=== PATIENT | female | born 1990 | race Caucasian/White ===

== ENCOUNTER 2016-07-13 16:59 | Emergency (ER) | payer OTHER ==
[~2016-07-13] VITALS: Ht 162.6 cm; Wt 88.5 kg
[2016-07-13 17:00] VITALS: TEMP 36.6; Ht 162.6 cm; Wt 88.5 kg
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
[2016-07-13] MEDS ORDERED: PRENTAB26 PO (17:24)
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
--- NOTE | 2016-07-13 18:03 | DIAGNOSTIC IMAGING REPORT ---
RIGHT FOOT MIN 3 VIEWS ROUTINE CLINICAL HISTORY: right foot pain Right pain COMPARISON: None. DISCUSSION: The bones and joint spaces appear intact. There is no evidence of fracture, dislocation or bony disease. Suggestion of subluxation of the fifth metatarsophalangeal joint on the AP projection. This is not supported on the additional images and appears to be secondary to patient positioning and/or overlap artifact. IMPRESSION: Heel spur. Mild soft tissue edema. No acute bony abnormality. If the patient specifically complains of pain at the fifth metatarsophalangeal joint, specific images of that region should be acquired Electronically signed by: Lucian Garcia M.D. 07/13/2016 6:02 PM Dictated Date/Time: 07/13/2016 6:00 PM
--- NOTE | 2016-07-13 18:56 | DIAGNOSTIC IMAGING REPORT ---
RIGHT TOE(S) MIN 2 VIEWS CLINICAL HISTORY: right fifth toe pain Right pain COMPARISON: Right foot series same date DISCUSSION: Anatomic alignment. No evidence for fracture or dislocation. Mild soft tissue edema. IMPRESSION: 1. No acute bony abnormality. 2. Mild soft tissue edema. 3. Findings on the prior series appear to relate to patient positioning Electronically signed by: Lucian Garcia M.D. 07/13/2016 6:54 PM Dictated Date/Time: 07/13/2016 6:53 PM
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
[2016-07-13 20:06] VITALS: BP 108/62; PULSE 88; O2SAT 99
== END 2016-07-13 20:07 | disposition home or self-care (01) ==
LOC: EDBD 16:59 → C.EDA 17:00
DX: O9A.212 Injury, poisoning and certain other consequences of external causes complicating pregnancy, second trimester (principal); Z3A.26 26 weeks gestation of pregnancy; S93.601A Unspecified sprain of right foot, initial encounter; V43.52XA Car driver injured in collision with other type car in traffic accident, initial encounter

== ENCOUNTER 2025-01-08 20:14 | Observation (INO) ==
[2025-01-08 20:26] VITALS: TEMP 98.2
[2025-01-08 21:03] LABS: Hematocrit (blood only) 39.9 % (37.0-47.0); Hemoglobin 13.3 g/dl (12.0-16.0); Immature Granulocytes # (auto) 0.01 K/uL (0.01-0.20); Immature Granulocytes % (auto) 0.2 %; Mean Corpuscular Hemoglobin 30.6 pg (25.0-34.0); Mean Corpuscular Volume 91.9 fL (80.0-100.0); Platelet Count 211 K/uL (130-400); RDW Standard Deviation 41.8 fL (36.4-46.3); Red Blood Count 4.34 M/uL (4.20-5.40); White Blood Count 6.66 K/ul (4.8-10.8)
[2025-01-08 21:21] LABS: Alanine Aminotransferase 16.0 U/L (7-52); Albumin Globulin Ratio 1.4 (0.9-2); Alkaline Phosphatase 49.0 U/L (34-104); Anion Gap 5.0 (3-11); Bilirubin,Total 0.5 mg/dl (0.2-1.0); Blood Urea Nitrogen 5.0 mg/dl (6-23); Calcium 8.8 mg/dl (8.6-10.3); Carbon Dioxide 30.0 mmol/L (21-32); Chloride 109.0 mmol/L (98-107); Creatinine Clr Calc Pharmacy 70.0 ml/min; Globulin 2.9 gm/dl (2.5-4.0); Glucose 87.0 mg/dl (70-99(Fasting)); Potassium 3.6 mmol/L (3.5-5.1); Sodium 144.0 mmol/L (136-145); Total Protein 6.9 gm/dl (6.0-8.3)
[2025-01-08 21:35] LABS: INR 1.0 (0.9-1.1); Partial Thromboplastin Time 25 Seconds (21-31); Prothrombin Time 11.0 Seconds (9.0-12.0)
[2025-01-08 22:06] LABS: Magnesium 2.2 mg/dl (1.7-2.4)
[2025-01-08 22:07] LABS: Pregnancy Test, Serum Negative (Negative)
[2025-01-08 22:22] LABS: Thyroid Stimulating Hormone 3.342 uIu/ml (0.300-4.500)
[2025-01-08] MEDS: OPTIRAY 320 125ml IV ONE (22:33)
--- NOTE | 2025-01-08 22:36 | XRay Report ---
Exam(s): XR CXR 1 VIEW EXAM: XR Chest, 1 View CLINICAL HISTORY: Chest pain, nonspecific. TECHNIQUE: Frontal view of the chest. COMPARISON: Chest single view 06/06/2020 FINDINGS: Lungs: Unremarkable. No consolidation. The pulmonary vasculature demonstrates no significant radiographic abnormality. Pleural space: Unremarkable. No pneumothorax. No large pleural effusion. Heart: Stable postsurgical changes consistent with cardiac valve replacement. No cardiomegaly. Mediastinum: No significant abnormality identified. The trachea is midline. Bones/joints: Intact sternal hardware. No acute osseous abnormality. IMPRESSION: No acute cardiopulmonary process or significant alteration from the prior examination. Stable postsurgical changes. Electronically signed by: Dion Ceballos MD 01/08/25 22:35 PM
[2025-01-08] MEDS: ALBUT/IPRATROP 3MG/0.5MG NEB 3 ML VIAL NEB STA (22:41)
--- NOTE | 2025-01-08 23:20 | CT Scan Report ---
Exam(s): CTA CHEST IV Amt: 120 ml EXAM: CT Angiography Chest With Intravenous Contrast CLINICAL HISTORY: PE. TECHNIQUE: Axial computed tomographic angiography images of the chest with intravenous contrast. CTDI is 18.32 mGy and DLP is 600.8 mGy-cm. Automated exposure control was utilized for the study. A dose lowering technique was utilized adhering to the principles of ALARA. MIP reconstructed images were created and reviewed. COMPARISON: No relevant prior studies available. FINDINGS: Pulmonary arteries: Accounting for limitations with respiratory artifact, there is no definite evidence for pulmonary embolism. Aorta: No acute findings. No thoracic aortic aneurysm. Lungs: Central peribronchial cuffing with more prominent changes in the lower lobes. Interlobular septal thickening noted in both lower lobes. No mass. No consolidation. Pleural space: Small right pleural effusion noted posteriorly measuring a approximately 12 mm. No loculation. No pneumothorax. Heart: Evidence of mitral valve replacement. The cardiac chambers are borderline prominent. No pericardial effusion. Bones/joints: No acute fracture. No dislocation. Soft tissues: Unremarkable. Lymph nodes: Unremarkable. No enlarged lymph nodes. IMPRESSION: 1. Accounting for limitations with respiratory artifact, there is no definite evidence for pulmonary embolism. 2. Central peribronchial cuffing with more prominent changes in the lower lobes. Interlobular septal thickening noted in both lower lobes. Favor dependent vascular congestion over interstitial infection. 3. Small right pleural effusion noted posteriorly measuring a approximately 12 mm. No loculation. Electronically signed by: Dion Ceballos MD 01/08/25 23:19 PM
--- NOTE | 2025-01-08 23:45 | XRay Report ---
Exam(s): XR LEFT ANKLE, 3+ views EXAM: XR Left Ankle Complete, 3 or More Views CLINICAL HISTORY: pain. TECHNIQUE: Frontal, lateral and oblique views of the left ankle. COMPARISON: No relevant prior studies available. FINDINGS: Bones/joints: No acute osseous abnormality. Remote healed fracture involving the distal fibula. Large plantar calcaneal spur. No dislocation. Soft tissues: Soft tissue fullness noted about the ankle. No radiopaque foreign body or subcutaneous emphysema. IMPRESSION: Soft tissue fullness noted about the ankle. No acute osseous abnormality involving the left ankle. Electronically signed by: Dion Ceballos MD 01/08/25 23:44 PM
--- NOTE | 2025-01-08 23:55 | Emergency Department Note ---
History of Present Illness General Chief complaint: Shortness of Breath/Dyspnea Stated complaint: WHEEZING, PAIN UNDER RIBS, ANKLE SWELLING Time Seen by Provider: 01/08/25 21:24 History of Present Illness Maximum Pain Intensity: 6 This 34 year old female presents to the ER c/o increasing shortness of breath with wheezing and increasing leg pain and swelling for the past 2 months steadily getting worse. Patient has not seen her net web developer in quite some time. At age 1 and 8 she had heart surgery for hole in her heart and for mitral valve prolapse. Patient denies chest pain, fever, chills, abdominal pain. She also injured her left ankle last year. No history of blood clots. No history of heart failure. No asthma. Home Medications Medication Instructions Recorded Confirmed Type vits no.133-ferrous 1 tab PO DAILY 04/21/20 06/06/20 History fumarate 28 mg-folic acid 800 mcg tablet () Allergies Allergy/AdvReac Type Severity Reaction Status Date / Time No Known Allergies Allergy Verified 06/06/20 06:36 Past Med/Surg History Problem List (Updated 01/09/25 @ 00:42 by Alecia Cobb PA-C) Edema (Acute) Acute dyspnea (Acute) Maternal congenital cardiac anomaly affecting , antepartum, third trimester Premature rupture of membranes Decreased movement Encounter for pre-operative examination Medical History Anxiety Asymptomatic PVCs Atrioventricular septal defect (AVSD) Back pain Cardiac murmur Chronic back pain Congenital mitral insufficiency Depression Irregular heart beat Leaky heart valve FOLLOWED WITH DR. RUIZ --> UPCOMING NEW PT APPT WITH DR. REYNAGA 12/18. Migraine Mitral stenosis Surgical History H/O mitral valve repair History of cardiac cath APPROX 20 YEARS AGO - [place] History of open heart surgery A CHILD X 2 (AGE 1 AND AGE 8) -- "ONE TO PATCH A HOLE IN MY HEART AND ONE TO REPAIR A VALVE" Family History Mother Family history of reaction to anesthesia PONV Social History Smoking Status: Never smoker Second Hand Exposure: No; Do You Dip or Chew Tobacco: No; Hx Alcohol Use: No Hx Substance Use: No Preferred Language: Khmer Communication Ability: Effective Dental Claims Processor Required: No Beliefs That Will Affect Care: None marital status: Current Living Situation: Spouse Feels Safe at Home: Yes Assistive Devices: Contacts Review of Systems A total of 10 systems reviewed and were otherwise negative Physical Exam Vital Signs Vital Signs - 24 hr 01/08/25 20:20 01/08/25 22:42 01/08/25 22:55 Temperature 36.8 C Temperature Source Oral Pulse Rate 70 60 Pulse Rate [Apical] 57 L Pulse Rhythm [Apical] Regular Pulse Strength [Apical] Normal Respiratory Rate 18 18 Respiratory Effort / Characteristics Non-Labored Spontaneous Non-Labored Spontaneous Respiratory Depth Normal Normal Blood Pressure 139/78 Blood Pressure [Right Arm] 141/87 H Blood Pressure Mean 98 Blood Pressure Mean [Right Arm] 105 Pulse Oximetry 98 96 Oxygen Delivery Method Room Air Room Air Sepsis Recent Fever Within 48 Hours No Sepsis New/Unexplained Change in Mental Status No Sepsis Action Taken by Nursing No Action Required VITALS: Vitals are noted on the nurse's note and reviewed by myself. Vital signs stable. GENERAL: Pleasant female ambulating without difficulties, in no acute distress, nondiaphoretic, well-developed well-nourished. SKIN: Capillary reflex less than 2 seconds. HEENT: Normocephalic. PERRLA. EOMI. Nares patent. Mucous membranes moist. Neck is supple without nuchal rigidity. HEART: Regular rate and rhythm LUNGS: Mild diffuse end expiratory wheezes. No retractions or accessory muscle use. ABDOMEN: Positive bowel sounds x 4. Normal tympanic percussion. Soft, nontender, without masses or organomegaly. Montano sign negative. No guarding or rebound tenderness. no CVA tenderness MUSCULOSKELETAL: No gross musculoskeletal defects. +2 pitting edema up to the ankles bilaterally. NEURO: Patient was alert and oriented to person place and time. No focal neurological deficits. Course Administered Medications Discontinued Medications Albuterol (Albut/Ipratrop 3mg/0.5mg Neb 3 Ml Vial) 3 ml NEB NOW STA; Protocol Stop: 01/08/25 21:49 Last Admin: 01/08/25 22:41 Dose: 3 ml Documented By: [facility] Ioversol (Optiray 320 125ml) 120 ml IV ONCE ONE Stop: 01/08/25 22:34 Last Admin: 01/08/25 22:33 Dose: 120 ml Documented By: ROBERT Medical Decision Making Medical Records Attestation: I reviewed the patient's medical records. Home Medications Current Medication List: was personally reviewed by me Laboratory Data Attestation: I reviewed the patient's lab results. 01/08/25 20:56 01/08/25 20:56 Lab Results 01/08/25 Range/Units 20:56 WBC 6.66 (4.8-10.8) K/ul RBC 4.34 (4.20-5.40) M/uL Hgb 13.3 (12.0-16.0) g/dl Hct 39.9 (37.0-47.0) % MCV 91.9 (80.0-100.0) fL MCH 30.6 (25.0-34.0) pg MCHC 33.3 (32.0-36.0) g/dL RDW Std Deviation 41.8 (36.4-46.3) fL RDW Coeff of Teresa 12.5 (11.5-14.5) % Plt Count 211 (130-400) K/uL MPV 11.0 (9.4-12.4) fL Immature Gran % (Auto) 0.2 % Neut % (Auto) 55.0 % Lymph % (Auto) 34.8 % Franklin % (Auto) 7.4 % Eos % (Auto) 1.8 % Baso % (Auto) 0.8 % Neut # (Auto) 3.67 (1.40-6.50) K/uL Lymph # (Auto) 2.32 (1.20-3.40) K/uL Franklin # (Auto) 0.49 (0.11-0.59) K/uL Eos # (Auto) 0.12 (0.00-0.50) K/uL Baso # (Auto) 0.05 (0.00-0.20) K/uL Immature Gran # (Auto) 0.01 (0.01-0.20) K/uL PT 11.0 (9.0-12.0) Seconds INR 1.0 (0.9-1.1) APTT 25 (21-31) Seconds PTT Ratio 0.9 Sodium 144 (136-145) mmol/L Potassium 3.6 (3.5-5.1) mmol/L Chloride 109 H (98-107) mmol/L Carbon Dioxide 30 (21-32) mmol/L Anion Gap 5 (3-11) BUN 5 L (6-23) mg/dl Creatinine 1.10 (0.6-1.2) mg/dl Est Cr Clr Drug Dosing 70.0 ml/min eGFR 66.78 BUN/Creatinine Ratio 4.5 L (10-20) Glucose 87 (70-99(Fasting)) mg/dl Calcium 8.8 (8.6-10.3) mg/dl Magnesium 2.2 (1.7-2.4) mg/dl Total Bilirubin 0.5 (0.2-1.0) mg/dl AST 16 (13-39) U/L ALT 16 (7-52) U/L Alkaline Phosphatase 49 (34-104) U/L Troponin I High Sens 3.8 (0-14) pg/ml B-Natriuretic Peptide 465 H (0-100) pg/ml Total Protein 6.9 (6.0-8.3) gm/dl Albumin 4.0 (3.4-5.0) gm/dl Globulin 2.9 (2.5-4.0) gm/dl Albumin/Globulin Ratio 1.4 (0.9-2) TSH 3.342 (0.300-4.500) uIu/ml HCG, Qual Negative (Negative) Imaging Data Attestation: I personally reviewed and interpreted this imaging study as follows: Radiologist's Impression: Chest X-Ray 01/08/25 20:26 Exam(s): XR CXR 1 VIEW EXAM: XR Chest, 1 View CLINICAL HISTORY: Chest pain, nonspecific. TECHNIQUE: Frontal view of the chest. COMPARISON: Chest single view 06/06/2020 FINDINGS: Lungs: Unremarkable. No consolidation. The pulmonary vasculature demonstrates no significant radiographic abnormality. Pleural space: Unremarkable. No pneumothorax. No large pleural effusion. Heart: Stable postsurgical changes consistent with cardiac valve replacement. No cardiomegaly. Mediastinum: No significant abnormality identified. The trachea is midline. Bones/joints: Intact sternal hardware. No acute osseous abnormality. IMPRESSION: No acute cardiopulmonary process or significant alteration from the prior examination. Stable postsurgical changes. Electronically signed by: Dion Ceballos MD 01/08/25 22:35 PM Ankle X-Ray 01/08/25 21:48 Exam(s): XR LEFT ANKLE, 3+ views EXAM: XR Left Ankle Complete, 3 or More Views CLINICAL HISTORY: pain. TECHNIQUE: Frontal, lateral and oblique views of the left ankle. COMPARISON: No relevant prior studies available. FINDINGS: Bones/joints: No acute osseous abnormality. Remote healed fracture involving the distal fibula. Large plantar calcaneal spur. No dislocation. Soft tissues: Soft tissue fullness noted about the ankle. No radiopaque foreign body or subcutaneous emphysema. IMPRESSION: Soft tissue fullness noted about the ankle. No acute osseous abnormality involving the left ankle. Electronically signed by: Dion Ceballos MD 01/08/25 23:44 PM Chest CTA 01/08/25 21:48 Exam(s): CTA CHEST IV Amt: 120 ml EXAM: CT Angiography Chest With Intravenous Contrast CLINICAL HISTORY: PE. TECHNIQUE: Axial computed tomographic angiography images of the chest with intravenous contrast. CTDI is 18.32 mGy and DLP is 600.8 mGy-cm. Automated exposure control was utilized for the study. A dose lowering technique was utilized adhering to the principles of ALARA. MIP reconstructed images were created and reviewed. COMPARISON: No relevant prior studies available. FINDINGS: Pulmonary arteries: Accounting for limitations with respiratory artifact, there is no definite evidence for pulmonary embolism. Aorta: No acute findings. No thoracic aortic aneurysm. Lungs: Central peribronchial cuffing with more prominent changes in the lower lobes. Interlobular septal thickening noted in both lower lobes. No mass. No consolidation. Pleural space: Small right pleural effusion noted posteriorly measuring a approximately 12 mm. No loculation. No pneumothorax. Heart: Evidence of mitral valve replacement. The cardiac chambers are borderline prominent. No pericardial effusion. Bones/joints: No acute fracture. No dislocation. Soft tissues: Unremarkable. Lymph nodes: Unremarkable. No enlarged lymph nodes. IMPRESSION: 1. Accounting for limitations with respiratory artifact, there is no definite evidence for pulmonary embolism. 2. Central peribronchial cuffing with more prominent changes in the lower lobes. Interlobular septal thickening noted in both lower lobes. Favor dependent vascular congestion over interstitial infection. 3. Small right pleural effusion noted posteriorly measuring a approximately 12 mm. No loculation. Electronically signed by: Dion Ceballos MD 01/08/25 23:19 PM MDM Narrative Prior records/ancillary studies reviewed. Triage Nursing notes reviewed. Additional history obtained from the nursing. The patient's history was concerning for respiratory difficulties. Differential diagnosis: Etiologies such as infections, reactive airway disease, pneumonia, pneumothorax, COPD, CHF, cardiac ischemia, pulmonary embolism, musculoskeletal, gastrointestinal, as well as others were entertained. Physical examination: As above. ER treatment provided: An order was placed for continuous cardiac monitoring. The monitor shows a rate of 60-100 with a sinus rhythm per my interpretation. Nebulizer, Lasix On reassessment the patient felt better. Diagnostic interpretation by me: The electrocardiogram was ordered for SOB. ECG: Normal sinus, T wave inversions in 1 and aVL, rate of 55. Impression sinus bradycardia left axis deviation independently interpreted by myself The labs Independently Interpreted by myself revealed elevated BNP. Negative troponin Euthyroid, negative hCG Imaging studies: Imaging was reviewed and read by radiology HEART SCORE: Hx: high/mod/low suspicion: 0 ECG: ST depression/nonspecific changes/normal: 0 Age: Greater than 65/45-64/less than 45: 0 Risk factors: (Hypertension, hyperlipidemia, diabetes, coronary disease, tobacco use, cocaine use): 1 Troponin: Greater than 2 times normal limits/1-2 times normal limits/normal: 0 Total: 1 Consultation: A consultation was placed with the hospitalist. The case was discussed and diagnostics were reviewed. The patient was evaluated in the ER for further treatment. Consultation was placed with cardiology, Dr. Jiang and states the echo can wait to the morning as patient is stable. This appears to be consistent with increased fluid in the lung and in the lower legs. BNP was elevated. Patient was given Lasix. Patient was not hypoxic. She is speaking in full sentences. Imaging was reviewed. Medicine was consulted case discussed. She will be evaluated for admission.. By the evaluation outlined above emergent etiologies such as pulmonary embolism, reactive airway disease, pneumonia, pneumothorax, musculoskeletal, serious bacterial infections, as well as others were deemed relatively unlikely. The pt informed about the findings as listed above. All questions were answered and pleased with the treatment. The chart was completed utilizing [employer] voice recognition software. Grammatical errors, random word insertions, pronoun errors, and incomplete sentences are an occassional consequence of this system due to software limitations, ambient noise, and hardware issues. Any formal questions or concerns about the content, text, or information contained within the body of this dictation should be directly addressed to the physician senior office support assistant sosa for clarification. Impression & Plan Acute dyspnea, Edema Discharge Plan Visit Data Chief Complaint: Shortness of Breath/Dyspnea Stated Complaint: WHEEZING, PAIN UNDER RIBS, ANKLE SWELLING ED Provider: Tong Nugent ED Midlevel Provider: Alecia Cobb Discharge Problem: Acute dyspnea, Edema Patient Disposition: Admitted As Inpatient Condition: Good Forms Stand Alone Forms: My [facility] Frograms Prescriptions Prescriptions: No Action 28-800 mg-mcg Tablet 1 tab PO DAILY Referrals Referrals: Christian Meyer DO [Primary Care Provider] -
--- NOTE | 2025-01-09 00:38 | History & Physical Report ---
Date of Service January 09, 2025 Assessment & Plan (1) Bilateral edema of lower extremity: (2) Acute dyspnea: (3) Abdominal pain: (4) Acute diarrhea: Plan Patient is a 34-year-old female with past medical history of severe mitral regurg s/p mitral ring annuloplasty 2000, AVSD s/p AV canal defect repair in 1992, migraines, depression. Patient presented due to 2 days of dyspnea on exertion, wheezing, bilateral lower extremity edema, migraines, diarrhea, and right sided abdominal pain. CTA in the ED revealed possible vascular congestion with small right pleural effusion and a BNP of 465. She is being admitted for further workup including echocardiogram and abdominal imaging. #Bilateral lower extremity edema/dyspnea on exertion - CXR negative. Chest CTA with some vascular congestion and small right pleural effusion measuring 12 mm. BNP 465, troponin 3.8. - most recent echocardiogram on file in 2018 revealed AV canal defect s/p repair (done in 1992), mitral ring annuloplasty for severe MR (done in 1999), moderate MS, mild to moderate left atrial enlargement, tricuspid insufficiency. Echocardiogram ordered Currently does not have care with established centerless grinder set up operator, considering Dr. Argueta in [place] - Cardiology consulted Bilateral venous Dopplers ordered and pending Received Lasix 40 Mg IV in the ED, defer further Lasix use as euvolemic, very mild edema, low clinical concern for CHF SCDs, promote leg elevation Heart healthy low-sodium diet #Diarrhea/abdominal pain patient with up to 10 episodes of diarrhea for several days, RUQ abd pain. LFTs WNL. - stool cultures ordered - AP CT ordered #migraines - reported multiple over the past few days. Recently off home Topamax and Imitrex due to PCP change. - follow up out patient with PCP #mental health - off Effexor and Adderall for about 1 month due to PCP change - follow up in out patient setting VTE ppx: SCDs, low risk and obs status Dispo: med/tele Anticipate discharge home 01/09 after echocardiogram. Admission and Anticipated Discharge Date Admission Date: 01/09/25 History of Present Illness Chief Complaint: dyspnea Primary Care Provider: Christian Meyer, Patient is a 34-year-old female with past medical history of severe mitral regurg s/p mitral ring annuloplasty 2000, AVSD s/p AV canal defect repair in 1992, migraines, depression. Patient presented due to 2 days of dyspnea on exertion, wheezing, bilateral lower extremity edema, migraines, diarrhea, and right sided abdominal pain. CTA in the ED revealed possible vascular congestion with small right pleural effusion and a BNP of 465. She is being admitted for further workup including echocardiogram. Patient seen at bedside with her present. She endorses the above for several days. She stated the migraines have been off and on for 8 days which she does have a history of however has not been taking her home medications of Topamax and Imitrex for about a month due to transferring PCPs. She also recently stopped her Effexor and Adderall in the past month. Patient also endorses right upper and lower quadrant abdominal pain with diarrhea for the past few days. She states she has approximately 10 episodes of diarrhea a day that is loose and watery. She denies any hematochezia. She denies any dizziness, lightheadedness, chest pain, nausea, vomiting. She denies any current or past nicotine use. She has not seen a centerless grinder set up operator in many years however plans to establish care with centerless grinder set up operator in [place], Dr. Argueta. He is agreeable to admission with further workup including echocardiogram. She wishes to be full code. ED provider to have spoke with socially responsible investment adviser centerless grinder set up operator regarding concern for new onset CHF - will eval in morning with routine echo. Allergies Allergy/AdvReac Type Severity Reaction Status Date / Time No Known Allergies Allergy Verified 06/06/20 06:36 Home Medications Medication Instructions Recorded Confirmed Type vits no.133-ferrous 1 tab PO DAILY 04/21/20 06/06/20 History fumarate 28 mg-folic acid 800 mcg tablet () Past Med/Surg History Problem List (Updated 01/09/25 @ 01:09 by Leydi Daly PA-C) Acute diarrhea Abdominal pain Bilateral edema of lower extremity Edema (Acute) Acute dyspnea (Acute) Maternal congenital cardiac anomaly affecting , antepartum, third trimester Premature rupture of membranes Decreased movement Encounter for pre-operative examination Medical History Anxiety Asymptomatic PVCs Atrioventricular septal defect (AVSD) Back pain Cardiac murmur Chronic back pain Congenital mitral insufficiency Depression Irregular heart beat Leaky heart valve FOLLOWED WITH DR. RUIZ --> UPCOMING NEW PT APPT WITH DR. REYNAGA 12/18. Migraine Mitral stenosis Surgical History H/O mitral valve repair History of cardiac cath APPROX 20 YEARS AGO - [place] History of open heart surgery A CHILD X 2 (AGE 1 AND AGE 8) -- "ONE TO PATCH A HOLE IN MY HEART AND ONE TO REPAIR A VALVE" Family History Mother Family history of reaction to anesthesia PONV Social History Smoking Status: Never smoker Second Hand Exposure: No; Do You Dip or Chew Tobacco: No; Hx Alcohol Use: No Hx Substance Use: No Preferred Language: Bulgarian Communication Ability: Effective Brake Adjuster Required: No Beliefs That Will Affect Care: None marital status: Current Living Situation: Spouse Feels Safe at Home: Yes Assistive Devices: Contacts Review of Systems Review of Systems: see HPI Physical Exam Physical Exam: The patient is awake, alert and oriented 3, well developed and well nourished, normocephalic and atraumatic, in no acute distress. Non-toxic appearing. HEENT- EOMI, mucous membranes moist. Hearing grossly intact. Heart-normal S1 and S2. No murmurs, rubs or gallops. Lungs-clear bilaterally, no respiratory distress, no accessory muscle use. Abdomen-normal bowel sounds and soft. No ascites noted. Tender to RUQ. Extremities- no clubbing, cyanosis. Trace pedal edema. Rheumatologic-normal range of motion. Psychiatric-normal affect. Results & Data Results & Data Vital Signs (Past 12 Hours) Vital Signs Temp Pulse Pulse Resp BP BP Pulse Ox 01/08/25 22:55 60 01/08/25 22:42 57 L 18 141/87 H 96 01/08/25 20:20 36.8 C 70 18 139/78 98 O2 Del Method 01/08/25 22:55 01/08/25 22:42 Room Air 01/08/25 20:20 Room Air Laboratory Results Reviewed CBC, CMP, PT/INR, magnesium, troponin, BNP, TSH, hCG Diagnostic Findings reviewed chest CTA, ankle XR, chest x-ray Pending bilateral venous Doppler Medications Administered EDDuoNeb, Lasix 40 Mg IV ECG Additional Comments: sinus bradycardia, rate 55 QTc 440 Code Status & VTE Plan Code Status full code VTE Prophylaxis Plan VTE Prophylaxis will be ordered: Yes Supervising Physician Co-Signing Physician Notes Attending addendum: I have physically seen this patient, have supervised the LUNA's activities, and agree with the H&P unless as otherwise noted. Assessment and Plan: The patient is a 34-year-old female with past medical history including severe mitral regurgitation status post mitral ring annuloplasty in 2000, AVSD status post AV canal defect repair in 1992, migraines, and depression. She presents to the emergency department with 2 days of dyspnea on exertion, wheezing, bilateral pedal edema, migraines, diarrhea and right upper quadrant abdominal pain. CTA chest in the ED read by radiology as possible vascular congestion with small ri ght pleural effusion. BNP was 465. Patient was referred to the [facility] Hospitalist service for further evaluation and potential treatment Bilateral pedal edema/dyspnea on exertion- Chest x-ray was negative CTA read by radiology as possible vascular congestion and small right pleural effusion BNP was 465, troponin 3.8 The patient will be admitted to telemetry for serial cardiac enzymes, serial EKG's, cardiac rhythm monitoring and a 2-D echocardiogram with Dopplers. The patient was given furosemide 40 mg IV by the emergency department, with no significant change in urination Would not give any further furosemide at this point Consult cardiology Right upper quadrant abdominal pain/diarrhea- Patient describes up to 10 episodes of diarrhea for the last week Right upper quadrant abdominal pain is easily reproducible on examination CT scan abdomen and pelvis assess gallbladder function Stool culture ordered to follow If CT is negative, would consider abdominal ultrasound versus HIDA scan Migraines- Has been on Topamax and Imitrex previously in the outpatient setting Likely secondary to physiologic stress of abdominal discomfort and diarrhea Mental health- Off of Effexor and Adderall just as with migraine medications above due to PCP change She will need follow-up in outpatient setting PG Care Time/CCT Total # of Minutes Spent Total Time Spent with Patient: Total time spent is greater than 50% in coordination of care (as documented) at patient's floor/unit and/or counseling patient: Coding Level of Care Code 81915 INT INP/OBS CARE 3/75MIN Diagnoses Bilateral edema of lower extremity R60.0 Acute dyspnea R06.00 Abdominal pain R10.9 Acute diarrhea R19.7
[2025-01-09] MEDS: FUROSEMIDE 40 MG/4 ML VIAL IV ONE (00:53)
--- NOTE | 2025-01-09 02:15 | Ultrasound Report ---
EXAM: US venous doppler LE BI CLINICAL HISTORY: DVT. TECHNIQUE: Ultrasound examination of bilateral lower extremity veins was performed in real time and duplex. One or more of the following were performed: spectral analysis, resistive index, waveform analysis, and pulsed Doppler. COMPARISON: None. FINDINGS: Normal phasic, non-pulsatile, and spontaneous flow is noted in bilateral GSV, common femoral, superficial femoral, popliteal and posterior tibial, and peroneal veins. Visualized veins of both lower extremities demonstrate normal compressibility. No sonographic evidence of acute deep vein thrombosis (DVT) is detected in the visualized veins of both lower extremities. Compression and Augmentation: All evaluated veins compress fully with the applied transducer pressure. Augmentation of venous flow is noted with distal compression. Additional Findings: No evidence of intraluminal thrombus. IMPRESSION: No sonographic evidence of acute DVT is detected in the bilateral common femoral, superficial femoral, popliteal, and posterior tibial and peroneal veins at the time of examination. Disclaimer: DVT could be missed early in the disease when clot burden is minimal. For patients with moderate and high pretest probability of DVT and negative ultrasound, the [place] [employer] clinical guidelines recommend testing with a D-dimer assay or repeat ultrasound in 5-7 days. If symptoms worsen, the Society of radiologists in ultrasound recommends repeating ultrasound even earlier. Electronically signed by Amilcar Shin 01-09-2025 02:15 AM
[2025-01-09] MEDS ORDERED: DOCUSATE SODIUM 100 MG CAP PO PRN (02:43)
[2025-01-09] MEDS ORDERED: ONDANSETRON INJ 2 MG/ML 2 ML VIAL IV PRN (02:43)
[2025-01-09] MEDS ORDERED: MELATONIN 3 MG TAB PO PRN (02:43)
--- NOTE | 2025-01-09 03:06 | CT Scan Report ---
EXAM: CT abd pelvis wo con CLINICAL HISTORY: abd pain, diarrhea TECHNIQUE: Contiguous axial images were obtained from the level of the diaphragm to the pubic symphysis without intravenous or oral contrast. Coronal and sagittal reconstructions were likewise performed and indicated to increase the sensitivity for detecting clinically relevant pathology. CT scan was performed according to ALARA (as low as reasonably achievable). COMPARISON: none FINDINGS: The visualized lung bases shows minimal bilateral pleural effusion. Evaluation of the abdominal and pelvic visceral organs is limited without intravenous contrast. The unenhanced liver, spleen, pancreas, and adrenal glands are grossly unremarkable. The gallbladder is present. The kidneys are normal in size and attenuation.There is no hydronephrosis or perinephric stranding. Concretion at lower pole calyx of left kidney. The ureters are normal in caliber. The urinary bladder is normal in contour. Pelvic viscera are grossly unremarkable. Minimal fluid in pouch of Ronnie No adenopathy are seen. No evidence of focal or diffuse bowel wall thickening or evidence of bowel obstruction is seen. No evidence of inflamed appendix. The aorta is normal in caliber. No aggressive appearing osseous lesions are identified. Decreased disc height with vaccum phenomena and end plate sclerosis/irregularities at L5/S1 level. IMPRESSION: 1. Left renal concretion. 2. Minimal fluid in pouch of Ronnie- likely Physiological. 3. Minimal bilateral pleural effusion. 4. Decreased disc height with vaccum phenomena and end plate sclerosis/irregularities at L5/S1 level- Possible inflammatory/infective spondylodiscitis to be ruled out, Electronically signed by Arden Morrow 01-09-2025 03:05 AM
--- NOTE | 2025-01-09 04:42 | Billing Data ---
Date of Service January 09, 2025 Coding Level of Care Code 57795 INT INP/OBS CARE
--- NOTE | 2025-01-09 09:42 | XCELERA ---
[id number] \\[id number]\[id number]_[id number]}___[id number].pdf
--- NOTE | 2025-01-09 10:18 | Cardiology Consultation ---
Date of Consultation January 09, 2025 Assessment & Plan (1) Peripheral edema: (2) Diastolic dysfunction: (3) Diastolic heart failure: (4) Congenital heart disease: (5) Partial AV canal: (6) Status post mitral valve annuloplasty: (7) Mitral regurgitation: (8) Mitral stenosis: Plan Furosemide 20 mg by mouth three days per week, and as needed Add low dose STEPHEN inhibition with ramipril 1.25 to 2.5 mg/day Reestablish cardiology care as an outpatient (plans to see provider with [facility] in [place]) Follow-up laboratory work in one week Lifelong SBE prophylaxis Reduce dietary sodium Avoid alcohol in excess Supervising Physician Co-Signing Physician Notes Patient seen and examined. Past medical history, surgical history, social history and family history have been reviewed. The medical record and all the above studies have been reviewed. Case DW LUNA including management. Interpretation Summary Left ventricular systolic function is normal. Diastolic dysfunction, Grade III (restrictive pattern), consistent with markedly increased left atrial pressure. The left atrium is moderately dilated. There is mild to moderate mitral regurgitation. There is moderate to severe mitral stenosis. Right ventricular systolic pressure is elevated at 30-40mmHg. The inferior vena cava is mildly dilated. Acute HFpEF - resolved B/L Ankle swelling - resolved CHD s/p partial AV canal repair s/p MV annuloplasty Moderate Mitral stenosis start ACEI low dose - Ramipril 1.25mg po daily and uptitrate as tolerated Lasix 20mg po 3 x / week check BMP in 1 week post discharge salt restriction alcohol cessation f/u with cardiology post discharge further cardiac w/u as outpatient as indicated stable from cardiac standpoint will sign off History of Present Illness Reason for Consultation: Lower extremity edema, CHF workup? Requesting Physician: [facility] Hospitalist Service, Leydi Daly PA-C [facility] Dr. Rebekah Jean MD History of Present Illness Teodora Romeo is a 34-year-old female who presented to [facility] emergency room in the evening of January 08, 2025 with complaints of lower extremity swelling, mild shortness of breath, mild wheezing, orthopnea, abdominal discomfort, and migraine headache. B natruretic peptide elevated at 465 pg/mL. High-sensitivity troponin normal at 3.8 pg/mL. EKG without acute change. ER telemetry benign. Imaging of the chest as detailed below. Resting echocardiography was interpreted by Dr. Jiang as revealing normal systolic function (EF 60 to 65%), grade 3 diastolic dysfunction, moderately dilated left atrium, mild to moderate mitral regurgitation, moderate to severe mitral stenosis. Estimated RVSP 30 to 40 mmHg. IVC mildly dilated. In the ER patient received 40 mg of IV furosemide with definite improvement in dyspnea wheezing, and fluid retention. Problem List: Congenital heart disease * Partial AV canal status post surgical repair at approximately 2 years * Repeat operation at age 9, due to severe mitral regurgitation, cleft mitral leaflet, status post mitral valve repair and annuloplasty ring * Mitral stenosis Subacute bacterial endocarditis prophylaxis candidate Asymptomatic PVCs Depression Migraines Family History: Mother with DVT. Maternal and paternal grandparents both with CAD. Maternal grandfather also with CHF, passing during COVID. Social History: Reformed smoker. No smokeless tobacco. Alcohol: Quit 3.5 months ago, previously drinking up to a case of beer per day. . 3 children. 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 Allergies Allergy/AdvReac Type Severity Reaction Status Date / Time No Known Allergies Allergy Verified 06/06/20 06:36 Home Medications Medication Instructions Recorded Confirmed Type vits no.133-ferrous 0 tab PO DAILY 04/21/20 01/09/25 History fumarate 28 mg-folic acid 800 mcg tablet () Patient History Medical History Chronic back pain Anxiety Cardiac murmur Leaky heart valve FOLLOWED WITH DR. RUIZ --> UPCOMING NEW PT APPT WITH DR. REYNAGA 12/18. Atrioventricular septal defect (AVSD) Irregular heart beat Migraine Depression Congenital mitral insufficiency Asymptomatic PVCs Mitral stenosis Back pain Surgical History History of open heart surgery A CHILD X 2 (AGE 3 AND AGE 8) -- "ONE TO PATCH A HOLE IN MY HEART AND ONE TO REPAIR A VALVE" History of cardiac cath APPROX 20 YEARS AGO - [place] H/O mitral valve repair Family History Mother Family history of reaction to anesthesia PONV Social History Smoking Status: Never smoker Second Hand Exposure: No; Do You Dip or Chew Tobacco: No; Hx Alcohol Use: No Hx Substance Use: No Preferred Language: Faroese Communication Ability: Effective 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 NAD. HENT: Normocephalic. Atraumatic. Eyes: PER. Conjunctiva pink, sclera clear. Neck: No carotid bruits. No JVD. No HJR. Heart: RRR. Grade II/ diastolic murmur. Grade II/ systolic murmur heard at lower left sternal border and apex. No rub. Lungs: Clear to auscultation. Abdomen: +BS. Soft. Nontender. No masses or organomegaly. Extremities: No clubbing, cyanosis, or edema. Limited neurological examination is without focal deficits. Pulses: radial=2/4, posterior tibial=2/4. Results & Data Vital Signs (Past 12 Hours) Vital Signs Temp Pulse Pulse Resp BP Pulse Ox O2 Del Method 01/09/25 07:09 52 L 01/09/25 04:13 56 L 18 113/67 97 Room Air 01/09/25 02:35 57 L 01/09/25 02:00 36.8 C 70 17 102/70 100 Room Air 01/09/25 00:52 60 18 117/69 96 Room Air 01/09/25 00:29 58 L 18 97 Room Air 01/08/25 22:55 60 01/08/25 22:42 57 L 18 141/87 H 96 Room Air Laboratory Results Cardiac Enzymes 01/08/25 Range/Units 20:56 AST 16 (13-39) U/L Troponin I High Sens 3.8 (0-14) pg/ml B-Natriuretic Peptide 465 H (0-100) pg/ml Coagulation 01/08/25 Range/Units 20:56 PT 11.0 (9.0-12.0) Seconds APTT 25 (21-31) Seconds B-Natriuretic Peptide 465 H (0-100) pg/ml CBC 01/08/25 Range/Units 20:56 WBC 6.66 (4.8-10.8) K/ul RBC 4.34 (4.20-5.40) M/uL Hgb 13.3 (12.0-16.0) g/dl Hct 39.9 (37.0-47.0) % Plt Count 211 (130-400) K/uL Neut # (Auto) 3.67 (1.40-6.50) K/uL Lymph # (Auto) 2.32 (1.20-3.40) K/uL Bertie # (Auto) 0.49 (0.11-0.59) K/uL Eos # (Auto) 0.12 (0.00-0.50) K/uL Baso # (Auto) 0.05 (0.00-0.20) K/uL Comprehensive Metabolic Panel 01/08/25 Range/Units 20:56 Sodium 144 (136-145) mmol/L Potassium 3.6 (3.5-5.1) mmol/L Chloride 109 H (98-107) mmol/L Carbon Dioxide 30 (21-32) mmol/L BUN 5 L (6-23) mg/dl Creatinine 1.10 (0.6-1.2) mg/dl Glucose 87 (70-99(Fasting)) mg/dl Calcium 8.8 (8.6-10.3) mg/dl AST 16 (13-39) U/L ALT 16 (7-52) U/L Alkaline Phosphatase 49 (34-104) U/L Total Protein 6.9 (6.0-8.3) gm/dl Albumin 4.0 (3.4-5.0) gm/dl Intake and Output 01/08/25 01/09/25 01/09/25 22:59 06:59 14:59 Output Total 1200 / 1200 Balance -1200 / -1200 Output: Urine 1200 / 1200 Other: Weight 74.8 kg Weight Measurement Method Chair Scale Diagnostic Findings EKG on presentation revealed sinus bradycardia at 55 bpm. Left axis deviation. QTc 440 ms. January 09, 2025 TTE: Normal left ventricular systolic function. Grade 3 diastolic dysfunction, restrictive pattern, consistent with markedly increased left atrial pressure. Moderately dilated left atrium. Mild to moderate mitral regurgitation. Moderate to severe mitral stenosis. Right ventricular systolic pressure elevated at 30 to 40 mmHg. Mildly dilated IVC. CT imaging with small right pleural effusion measuring approximately 12 mm, without loculation. CT imaging without overt pulmonary embolism. Venous duplex negative for DVT. CT scan of the abdomen and pelvis demonstrated the following: The visualized lung bases shows minimal bilateral pleural effusion. Evaluation of the abdominal and pelvic visceral organs is limited without intravenous contrast. The unenhanced liver, spleen, pancreas, and adrenal glands are grossly unremarkable. The gallbladder is present. The kidneys are normal in size and attenuation.There is no hydronephrosis or perinephric stranding. Concretion at lower pole calyx of left kidney. The ureters are normal in caliber. The urinary bladder is normal in contour. Pelvic viscera are grossly unremarkable. Minimal fluid in pouch of Ronnie No adenopathy are seen. No evidence of focal or diffuse bowel wall thickening or evidence of bowel obstruction is seen. No evidence of inflamed appendix. The aorta is normal in caliber. No aggressive appearing osseous lesions are identified. Decreased disc height with vaccum phenomena and end plate sclerosis/irregularities at L5/S1 level. PG Care Time/CCT Total # of Minutes Spent Total Time Spent with Patient: Total time spent is greater than 50% in coordination of care (as documented) at patient's floor/unit and/or counseling patient. I spent a total of 85 mintues on the date of service in preparation, delivery, and documentation of the care provided to this patient excluding any time spent in the performance of separately billed services. This visit was a split-shared visit with the substantive portion of the medical decision making performed by the supervising food critic/billing provider, Dr. Mckay Coding Level of Care Code 92467 IN/OBS CONSULT LVL 5,80M Diagnoses Peripheral edema R60.0 Diastolic dysfunction I51.89 Diastolic heart failure I50.30 Congenital heart disease Q24.9 Partial AV canal Q21.21 Status post mitral valve annuloplasty Z98.890 Mitral regurgitation I34.0 Mitral stenosis I05.0
[2025-01-09] MEDS: ACETAMINOPHEN 325 MG TAB PO PRN (10:20)
--- NOTE | 2025-01-09 11:48 | Electrocardiogram Report ---
Test Reason : Blood Pressure : */* mmHG Vent. Rate : 55 BPM Atrial Rate : 55 BPM P-R Int : 186 ms QRS Dur : 78 ms QT Int : 460 ms P-R-T Axes : 0 -30 128 degrees QTcB Int : 440 ms Sinus bradycardia Left axis deviation Abnormal ECG When compared with ECG of 06-Jun-2020 06:39, T wave inversion less evident in Anterior leads Confirmed by Stone Jiang ([id number]) on 01/09/2025 11:46:34 AM Referred By: REFERRED SELF Confirmed By: Stone Jiang
[2025-01-09 13:48] VITALS: O2SAT 100
--- NOTE | 2025-01-09 14:41 | Discharge Summary ---
Discharge Summary Date of Service January 09, 2025 Principal Dx & Hospital Course #1 = Principal Diagnosis (1) Bilateral edema of lower extremity: (2) Acute dyspnea: (3) Abdominal pain: (4) Acute diarrhea: Plan Patient is a 34-year-old female with past medical history of severe mitral regurg s/p mitral ring annuloplasty 2000, AVSD s/p AV canal defect repair in 1992, migraines, depression. Patient presented due to 2 days of dyspnea on exertion, wheezing, bilateral lower extremity edema, migraines, diarrhea, and right sided abdominal pain. CTA in the ED revealed possible vascular congestion with small right pleural effusion and a BNP of 465. She is being admitted for further workup including echocardiogram and abdominal imaging. #Bilateral lower extremity edema/dyspnea on exertion - CXR negative. Chest CTA with some vascular congestion and small right pleural effusion measuring 12 mm. BNP 465, troponin 3.8. - most recent echocardiogram on file in 2019 revealed AV canal defect s/p repair (done in 1992), mitral ring annuloplasty for severe MR (done in 1999), moderate MS, mild to moderate left atrial enlargement, tricuspid insufficiency. Received Lasix 40 Mg IV in the ED Echocardiogram reviewed, grade III (restrictive pattern) diastolic dysfunction Currently does not have care with established director airport, considering Dr. Argueta in [place] - Cardiology recs appreciated, pt started on Lasix 20mg three times a week, ramipril 1.25mg po daily Bilateral venous Dopplers neg for DVT Heart healthy low-sodium diet #Diarrhea/abdominal pain patient with up to 10 episodes of diarrhea for several days, RUQ abd pain. LFTs WNL. - AP CT reviewed: nl bowel patterns. Does note decreased disc height, to be followed up as outpatient - stool cultures ordered but not sent due to no further episodes #migraines - reported multiple over the past few days. Recently off home Topamax and Imitrex due to PCP change. - follow up out patient with PCP #mental health - off Effexor and Adderall for about 1 month due to PCP change - follow up in out patient setting Admission HPI Per Admitting Provider Patient is a 34-year-old female with past medical history of severe mitral regurg s/p mitral ring annuloplasty 2000, AVSD s/p AV canal defect repair in 1992, migraines, depression. Patient presented due to 2 days of dyspnea on exertion, wheezing, bilateral lower extremity edema, migraines, diarrhea, and right sided abdominal pain. CTA in the ED revealed possible vascular congestion with small right pleural effusion and a BNP of 465. She is being admitted for further workup including echocardiogram. Patient seen at bedside with her present. She endorses the above for several days. She stated the migraines have been off and on for 8 days which she does have a history of however has not been taking her home medications of Topamax and Imitrex for about a month due to transferring PCPs. She also recently stopped her Effexor and Adderall in the past month. Patient also endorses right upper and lower quadrant abdominal pain with diarrhea for the past few days. She states she has approximately 10 episodes of diarrhea a day that is loose and watery. She denies any hematochezia. She denies any dizziness, lightheadedness, chest pain, nausea, vomiting. She denies any current or past nicotine use. She has not seen a director airport in many years however plans to establish care with director airport in [place], Dr. Argueta. He is agreeable to admission with further workup including echocardiogram. She wishes to be full code. ED provider to have spoke with salon professional director airport regarding concern for new onset CHF - will eval in morning with routine echo. Discharge Exam Gen: no acute distress, lying in bed comfortable HEENT: NC/AT, MMM Lungs: nonlabored breathing, CTAB CVS: s1s2nl, II/ ALEKSANDER, RRR Abd: nl bowel sounds, soft, NT / ND : no perez Ext: no edema Neuro: AAOx3 Psych: calm cooperative Discharge Plan Discharge Items Patient Disposition: Home - Self-Care Reason For Visit: SYNCOPE Discharge Diagnosis: Heart failure Condition on Discharge: Good Activity: Resume your previous activity Non-emergency contact: Primary Care Provider and Oil Derrick Operator Call non-emergency contact if: you have any medication questions and your symptoms worsen Follow-up/Referrals: Christian Meyer DO [Primary Care Provider] - Diet: Heart Healthy Addtl Attending Provider Instructions: - Please establish care with director airport as soon as possible - You are started on Lasix to be taken three times a week (mon-sat-sat OR [id number]) - You are started on ramipril 1.25mg po daily. Cardiology recs 1.25 - 2.5mg daily. You are started on lower dose. Please follow your blood pressure at home. Further adjustments can be made by your director airport - You will need antibiotic prophylaxis before any procedures including dental procedures. Please discuss this prior to any procedure - Please follow up with PCP in 7 to 10 days Pending Studies at Discharge: No Stand-Alone Forms: My [facility] [employer], Smoking Cessation Medications and DC Order Prescriptions: New furosemide 20 mg tablet See Rx Instructions .ROUTE .COMPLEX Qty: 14 0RF Rx Instructions: 20 mg orally three times a week ramipril 1.25 mg capsule 1.25 mg PO DAILY Qty: 30 0RF Continued 28-800 mg-mcg Tablet 0 tab PO DAILY Patient Comments: 01/09- otc unable to verify Discharge Orders: Discharge Order (Routine); Ordered 01/09/25 Ordered By: Rebekah Jean Admission Data Admit Date/Time: 01/09/25 00:36 Attending Provider: Rebekah Jean Admit Provider: Mark Serna Primary Care Provider: Christian Meyer Other Providers: Mark Serna; Irving Mckay Hospital Stay Data Consultations 01/08/25 23:52 ED Decision to Admit Stat 01/09/25 02:43 Consult Cardiology Routine Diagnostic Imagining Performed 01/08/25 21:48 CT angio chest PE protocol Stat 01/08/25 21:49 US venous doppler LE BI Stat 01/09/25 00:29 CT Abd and Pelvis [CT abd pelvis wo con] Stat Pending Results Patient Have Any Pending Studies at Discharge: No Discharge Instructions Given to Patient (Per Discharging Provider) - Please establish care with director airport as soon as possible - You are started on Lasix to be taken three times a week (sat-sat-sat OR [id number]) - You are started on ramipril 1.25mg po daily. Cardiology recs 1.25 - 2.5mg daily. You are started on lower dose. Please follow your blood pressure at home. Further adjustments can be made by your director airport - You will need antibiotic prophylaxis before any procedures including dental procedures. Please discuss this prior to any procedure - Please follow up with PCP in 7 to 10 days Total Time Total Time Spent Total Time Spent (In Minutes): 90 Coding Level of Care Code 54858 INP/OBS DISCH >30 MIN Diagnoses Bilateral edema of lower extremity R60.0 Acute dyspnea R06.00 Abdominal pain R10.9 Acute diarrhea R19.7
[2025-01-09 15:25] VITALS: BP 106/80; PULSE 56; RESP 18
== END 2025-01-09 15:26 | disposition home or self-care (01) ==
LOC: EDINP 20:14 → ED 20:14 → SUATTDRO 01-09 00:36 → EDINP 01-09 02:44